=== PATIENT | female | born 1970 | race Caucasian/White ===

== ENCOUNTER → 2017-04-11 | Day surgery (SDC) | payer OTHER ==
--- NOTE | 2017-04-11 10:27 | Operative Report ---
Operative/Inv Procedure Report Surgery Date: 04/11/17 Name of Procedure: Laparoscopic cholecystectomy Pre-Operative Diagnosis: Biliary dyskinesia Post-Operative Diagnosis: Same Estimated Blood Loss: scant Surgeon/Beader Tender: Brendan DOW,Tray Fonseca/Farrah JARAMILLO Anesthesia: general endotracheal tube Specimens: Gallbladder Operative/Procedure Note Note: After informed consent patient is brought to the operating room and laid supine. General anesthesia was obtained and her abdomen was prepped and draped. The skin above the umbilicus infiltrated with local anesthesia and a curvilinear incision made sharply. We came down through the subcutaneous tissues bluntly and grasped the fascia with [place]'s. A fasciotomy was created sharply and stay sutures placed. The peritoneum was entered sharply and a blunt Arnold port was placed. Pneumoperitoneum was achieved. 3, 5 mm ports were placed in the epigastrium and right upper quadrant after local anesthesia was instilled and under direct vision the camera. She's placed in reverse Trendelenburg and rotated towards the left. The gallbladder is identified. It was grasped at the dome and retracted towards the head. Infundibulum was then grasped. Adhesions to the undersurface were taken down with blunt and cautery dissection. We dissected both sides the triangle [place] peritoneal tissue with cautery. The artery was medial and its normal anatomic position. It was cauterized medially to allow it to be mobilized away from the duct. [place] was cleared of areolar tissue with cautery. The arteries and duct were doubly ligated with clips. Gallbladder is removed from the fossa electrocautery. It was placed in Endo Catch bag and cinched up. Right upper quadrant was and suction irrigated normal saline. Hemostasis achieved with cautery. The ports were then removed and the gallbladder delivered and passed off the field. The fascia was closed with 0 Vicryl suture. Skin incisions closed with 4-0 Vicryl. Steri-Strips and sterile dressing applied. Sponge and needle counts are correct. CC: Maria Eugenia DOW,Caroline
== END ==
LOC: STS 02:15
DX: K81.1 Chronic cholecystitis (principal); K82.8 Other specified diseases of gallbladder; G47.33 Obstructive sleep apnea (adult) (pediatric); E66.9 Obesity, unspecified; Z68.42 Body mass index [BMI] 45.0-49.9, adult
CPT/HCPCS: 36415; 81025; 88304; 88305; C9399; J0131; J0690; J2250

== ENCOUNTER 2017-05-08 16:00 | Emergency (ER) | payer OTHER ==
[~2017-05-08] VITALS: Ht 166.4 cm; Wt 127.0 kg
[2017-05-08 17:07] LABS: ABSOLUTE BASOPHIL COUNT 0 /CUMM (0.0-0.2); ABSOLUTE EOSINOPHIL COUNT 0.1 /CUMM (0.0-0.7); ABSOLUTE GRANULOCYTE CT 5.6 /CUMM (1.4-6.5); ABSOLUTE LYMPH COUNT 1.4 /CUMM (1.2-3.4); ABSOLUTE MONOCYTE COUNT 0.7 /CUMM (0.10-0.60); BASOPHIL % 0.1 % (0.0-2.0); EOSINOPHIL % 0.7 % (0-5); GRANULOCYTE % 72.2 % (42.2-75.2); HEMATOCRIT 44.5 % (37-47); MEAN CORPUSCULAR HGB 29.3 PG (27.0-31.0); MEAN CORPUSCULAR HGB CONC 34.4 G/DL (33.0-37.0); MEAN CORPUSCULAR VOLUME 85.3 FL (81.0-99.0); MEAN PLATELET VOLUME 8.4 FL (7.4-10.4); PLATELET COUNT 317 /CUMM (130-400); RBC DISTRIBUTION WIDTH 12.9 % (11.5-14.5); RED BLOOD CELL CT 5.22 /CUMM (4.20-5.40); WHITE BLOOD CELL COUNT 7.8 /CUMM (4.8-10.8)
--- NOTE | 2017-05-08 18:21 | ED INFLUENZA/URI COMPLAINT ---
History of Present Illness General Chief Complaint: Upper Respiratory Sx/Fever Stated Complaint: COUGH,BODY ACHES,HEAD,EAR AND THROAT PAIN Source: patient Exam Limitations: no limitations Vital Signs & Intake/Output Vital Signs & Intake/Output Vital Signs Date Time Temp Pulse Resp B/P B/P Pulse O2 O2 Flow FiO2 Mean Ox Delivery Rate 05/08 2028 98.7 100 28 105/57 95 Room Air 05/08 1620 98.8 116 18 121/86 97 Room Air Room Air Allergies Coded Allergies: latex (UNKNOWN 04/10/17) Triage Note: PT TO ED WITH C/O BILATERAL EAR PAIN, SORE THROAT ,HEADACHE, RIGHT ABD/RIGHT FLANK AREA "I HAVE A KIDNEY DISORDER, GLIDILMANS DISEASE". Triage Nurses Notes Reviewed? yes Onset: Abrupt Duration: hour(s):, constant, changing over time, continues in ED, getting worse , waxing and waning Severity: severe : No Patient currently breastfeeds: No HPI: Patient presents for evaluation of flulike symptoms that began rather abruptly yesterday. She denies associated fever, vomiting or dysuria. She has felt nauseous and states she had 2 episodes of nonbloody diarrhea today. She denies any recent travel or rashes. 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 She is also status post cholecystectomy on April 11 of this year. More specifically she is suffering from a nonproductive cough, body aches, headache, ear pain, throat pain and shooting right upper quadrant abdominal pain that wraps around to the right flank. Past History Travel History Traveled to [place] past 21 day No Medical History Any Pertinent Medical History? 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 No Review of Systems Review of Systems Constitutional: Reports: see HPI. EENTM: Reports: see HPI. Respiratory: Reports: no symptoms. Cardiovascular: Reports: no symptoms. GI: Reports: see HPI. Genitourinary: Reports: no symptoms. Musculoskeletal: Reports: no symptoms. Skin: Reports: no symptoms. Neurological/Psychological: Reports: no symptoms. Hematologic/Endocrine: Reports: no symptoms. Immunologic/Allergic: Reports: no symptoms. All Other Systems: Reviewed and Negative Physical Exam Physical Exam Ears, Nose, Throat: SEE BELOW Comments: Gen.: Well-nourished, well-developed, no acute respiratory distress. Head: Normocephalic, atraumatic. Eyes: Normal inspection bilaterally Ears: Normal inspection bilaterally Nose: Normal inspection Throat/mouth : Moist mucosa Neck: Supple, full range of motion, no goiter Heart: Regular rate and rhythm, no murmurs rubs or gallops Lungs: Harsh breath sounds at the end expiration with normal air entry, no wheezes rales or rhonchi Chest: Nontender Back: Normal range of motion, mild bilateral costovertebral angle tenderness to percussion Abdomen: Soft, mild epigastric and right upper quadrant abdominal tenderness without rebound or guarding, surgical wounds healing well, nondistended, normal bowel sounds Extremities: Normal range of motion grossly, equal radial pulses, no cyanosis clubbing or edema Neurologic: Cranial nerves grossly intact, speech is clear Skin: warm and dry Psychiatric: Calm, cooperative, no apparent delusions or hallucinations Lymphatic: No cervical lymphadenopathy Core Measures Sepsis Present: No Sepsis Focused Exam Completed? No Progress Differential Diagnosis: influenza, pneumonia, pharyngitis, sinusitis, VIRAL SYNDROME, POST OP COMPLICATION Plan of Care: Orders Procedure Date/time Status Add-on Test (ER Only) 05/08 1837 Active URINALYSIS 05/08 1639 Complete MAGNESIUM 05/08 1628 Complete LIPASE 05/08 1628 Complete HUMAN BETA HCG SCREEN 05/08 1628 Complete RAPID VIRAL INFLUENZA A 05/08 162 Complete THROAT CULTURE W/QUICK STREP 05/08 162 Active COMPREHENSIVE METABOLIC PANEL 05/08 1627 Complete CBC WITHOUT DIFFERENTIAL 05/08 162 Complete Current Medications Sig/Florentino Start time Last Medication Dose Stop Time Status Admin Magnesium Oxide 400 MG ONE ONE 05/08 2099 UNVr (Mag-Ox) 05/08 2100 Potassium Chloride 40 MEQ ONCE ONE 05/08 2099 UNVr (K-Dur) 05/08 210 Laboratory Tests 05/08/17 1640: Urine Color YEL, Urine Clarity CLEAR, Urine pH 7.0, Ur Specific [place] 1.025, Urine Protein 100 H, Urine Ketones NEG, Urine Nitrite POS H, Urine Bilirubin NEG, Urine Urobilinogen 0.2, Ur Leukocyte Esterase NEG, Ur Microscopic SEDIMENT EXAMINED, Urine RBC 1-3, Urine WBC 1-3 H, Ur Epithelial Cells FEW, Urine Bacteria RARE H, Urine Mucus FEW, Urine Hemoglobin SMALL H, Urine Glucose NEG 05/08/17 1628: Anion Gap 17 H, Estimated GFR > 60, BUN/Creatinine Ratio 21.4, Glucose 96, Calcium 10.5 H, Magnesium 1.0 L, Total Bilirubin 0.5, AST 19, ALT 30, Alkaline Phosphatase 54, Total Protein 8.1, Albumin 4.9, Globulin 3.2, Albumin/Globulin Ratio 1.5, Lipase 58, Total Beta HCG NEGATIVE, CBC w Diff NO MAN DIFF REQ, RBC 5.22, MCV 85.3, MCH 29.3, MCHC 34.4, RDW 12.9, MPV 8.4, Gran % 72.2, Lymphocytes % 17.7 L, Monocytes % 9.3, Eosinophils % 0.7, Basophils % 0.1, Absolute Granulocytes 5.6, Absolute Lymphocytes 1.4, Absolute Monocytes 0.7 H, Absolute Eosinophils 0.1, Absolute Basophils 0 Microbiology 05/08 1630 NASOPHARYN: Influenza Virus A & B Rapid Smear - COMP Diagnostic Imaging: Discussed w/RAD: Radiology Read, CT Scan. Radiology Impression: PATIENT: SARAH MARTÍNEZ PRESENT AGE: 47 PATIENT ACCOUNT NO: [id number] : 72 LOCATION: [facility] ORDERING PHYSICIAN: Ayush Gee MD SERVICE DATE: 05/08/17 EXAM TYPE: CAT - CT ABD & PELVIS W IV CONTRAST EXAMINATION: CT ABDOMEN AND PELVIS WITH CONTRAST CLINICAL INFORMATION: Right upper quadrant/epigastric abdominal pain and tenderness COMPARISON: None TECHNIQUE: Multidetector volumetric imaging was performed of the abdomen and pelvis following IV administration of 95 mL of Optiray 320 intravenous contrast. Sagittal and coronal reformatted images were obtained on the technologist's workstation. DLP: 1466 mGy-cm FINDINGS: LUNG BASES: The visualized lung bases are unremarkable. LIVER, GALLBLADDER, AND BILIARY TREE: The liver is normal in size, shape, and attenuation. No focal hepatic lesion or biliary ductal dilatation is present. Cholecystectomy. PANCREAS: Unremarkable. SPLEEN: Unremarkable. ADRENAL GLANDS: Unremarkable. KIDNEYS AND URETERS: The kidneys are normal in size, shape, and attenuation. No hydronephrosis, hydroureter, or calculi seen. No perinephric stranding. BLADDER: Unremarkable. GASTROINTESTINAL TRACT: The stomach and small bowel are unremarkable. No dilated loops of bowel or evidence of obstruction. Normal appendix. No colonic wall thickening or inflammatory change. No free air or free fluid. ABDOMINAL WALL: No significant hernia is appreciated. LYMPH NODES: Normal. VASCULAR: Unremarkable. PELVIC VISCERA: There is an IUD in place. No adnexal mass. OSSEOUS STRUCTURES: No acute or suspicious osseous abnormality. Degenerative changes of the spine. IMPRESSION: No acute findings of the abdomen or pelvis. No inflammatory changes. DICTATED BY: Eleazar Stahl MD DATE/TIME DICTATED:05/08/172011 AIR TRAFFIC CONTROL OPERATOR:KEELY DATE/TIME TRANSCRIBED:2011 CONFIDENTIAL, DO NOT COPY WITHOUT APPROPRIATE AUTHORIZATION. < Electronically signed in Other Vendor System> SIGNED BY: Eleazar Stahl MD 05/08/172019 CXR Impression: PATIENT: SARAH MARTÍNEZ PRESENT AGE: 47 PATIENT ACCOUNT NO: [id number] : 72 LOCATION: [facility] ORDERING PHYSICIAN: Ayush Gee MD SERVICE DATE: 05/08/17 EXAM TYPE: RAD - XRY-CHEST XRAY, TWO VIEWS EXAMINATION: XR CHEST CLINICAL INFORMATION: Infiltrate cough COMPARISON: None TECHNIQUE: 2 views of the chest were obtained. FINDINGS: There is a focal lateral peripheral opacity possibly along the minor fissure. The lungs are otherwise clear. Cardiac silhouette mediastinum pulmonary vascularity normal. IMPRESSION: Subtle opacity in the right lung could reflect atelectasis or evolving infiltrate. Recommend follow-up as the clinical situation dictates DICTATED BY: Lowell Bermudez MD DATE/TIME DICTATED:05/08/172020 AIR TRAFFIC CONTROL OPERATOR:KEELY DATE/TIME TRANSCRIBED:05/08/172020 CONFIDENTIAL, DO NOT COPY WITHOUT APPROPRIATE AUTHORIZATION. <Electronically signed in Other Vendor System> SIGNED BY: Lowell Bermudez MD 05/08/172025 Initial ED EKG: none Comments: 05/08/2017 8:55:09 PM I have updated Sarah on her test results. Departure Departure Disposition: HOME OR SELF CARE Condition: Stable Clinical Impression Primary Impression: Viral syndrome Secondary Impressions: Hypokalemia, Hypomagnesemia Referrals: Caroline Del Cid MD (PCP/Family) Additional Instructions: Maintain a good fluid intake. Ibuprofen 600 mg every 6 hours as needed for fever or muscle aches chills headache. Azithromycin as prescribed for the possibility of pneumonia. Robitussin DM as needed for cough or cold symptoms. Follow-up with your primary care physician in one week if not improving. Return if any concerns or sudden worsening. Please note that there might be incidental findings in your evaluation that are unrelated to the current emergency department visit. Please notify your primary care doctor about this emergency department visit in order to obtain and review all of the testing performed so that these incidental findings can be monitored as needed. If you had an x-ray performed, please understand that some fractures may not be seen on the initial set of x-rays. If your symptoms persist you might need a repeat set of x-rays to check for such a fracture. If you had a laceration evaluated, please understand that foreign bodies such as glass or wood may not be visible to the naked eye or on plain x-rays. If the wound becomes red, swollen, increasingly more painful or if there is any drainage from the wound, please have it reevaluated by a physician for the possibility of a retained foreign body. If you're unable to follow up as outlined in the discharge instructions please return to the emergency department. Thank you for choosing the [facility] Emergency Department for your care. It was a pleasure to serve you today. Ayush Gee M.D. [facility] Departure Forms: Customer Survey General Discharge Information
--- NOTE | 2017-05-08 20:20 | CT SCAN REPORT ---
EXAMINATION: CT ABDOMEN AND PELVIS WITH CONTRAST CLINICAL INFORMATION: Right upper quadrant/epigastric abdominal pain and tenderness COMPARISON: None TECHNIQUE: Multidetector volumetric imaging was performed of the abdomen and pelvis following IV administration of 95 mL of Optiray 320 intravenous contrast. Sagittal and coronal reformatted images were obtained on the technologist's workstation. DLP: 1466 mGy-cm FINDINGS: LUNG BASES: The visualized lung bases are unremarkable. LIVER, GALLBLADDER, AND BILIARY TREE: The liver is normal in size, shape, and attenuation. No focal hepatic lesion or biliary ductal dilatation is present. Cholecystectomy. PANCREAS: Unremarkable. SPLEEN: Unremarkable. ADRENAL GLANDS: Unremarkable. KIDNEYS AND URETERS: The kidneys are normal in size, shape, and attenuation. No hydronephrosis, hydroureter, or calculi seen. No perinephric stranding. BLADDER: Unremarkable. GASTROINTESTINAL TRACT: The stomach and small bowel are unremarkable. No dilated loops of bowel or evidence of obstruction. Normal appendix. No colonic wall thickening or inflammatory change. No free air or free fluid. ABDOMINAL WALL: No significant hernia is appreciated. LYMPH NODES: Normal. VASCULAR: Unremarkable. PELVIC VISCERA: There is an IUD in place. No adnexal mass. OSSEOUS STRUCTURES: No acute or suspicious osseous abnormality. Degenerative changes of the spine. IMPRESSION: No acute findings of the abdomen or pelvis. No inflammatory changes.
--- NOTE | 2017-05-08 20:26 | RADIOLOGY REPORT ---
EXAMINATION: XR CHEST CLINICAL INFORMATION: Infiltrate cough COMPARISON: None TECHNIQUE: 2 views of the chest were obtained. FINDINGS: There is a focal lateral peripheral opacity possibly along the minor fissure. The lungs are otherwise clear. Cardiac silhouette mediastinum pulmonary vascularity normal. IMPRESSION: Subtle opacity in the right lung could reflect atelectasis or evolving infiltrate. Recommend follow-up as the clinical situation dictates
[2017-05-08 20:29] VITALS: BP 105/57
[2017-05-08] MEDS ORDERED: AZITHROMYCIN500 M3 PO (21:05)
[2017-05-08] MEDS ORDERED: ROBITUSSIN COU118 M2 PO (21:05)
== END 2017-05-08 21:43 ==
LOC: ERH 16:00
PROVIDERS: Emergency Medicine
DX: B34.9 Viral infection, unspecified (principal); E87.6 Hypokalemia; E83.42 Hypomagnesemia
CPT/HCPCS: 71046; 74177; 81001; 87804; 87804-59; 96374; 96375; 99291; J1885; J2405